=== PATIENT | female | born 1930 | race Caucasian/White ===

== ENCOUNTER 2016-11-09 09:05 | Inpatient (IN) | payer OTHER, BC ==
[~2016-11-09] VITALS: Ht 142.2 cm; Wt 69.0 kg
[~2016-11-09 09:05] MED LIST: ACETAZOLAMIDE500 MG PO; ALTOPREV20 MG PO; AMBIEN5 MG PO; ASPIR-LOW81 MG PO; ASPIR-TRIN325 M1 PO; ATIVAN0.5 MG PO; BRILINTA90 MG PO; CARDIZEM CD,CA180 MG PO; CARDIZEM CD360 MG PO; CARVEDILOL6.25 MG PO; CEPHALEXIN500 MG PO; COLACE100 MG PO; FAMOTIDINE20 MG PO; FUROSEMIDE40 MG PO; HEPARIN SO5000 UNITS SC; KEFLEX500 MG PO; KLOR-CON 1010 ME1 PO; LASIX40 MG PO; LOSARTAN POTAS100 MG PO; LOSARTAN POTASS50 MG PO; MICRO-K10 ME2 PO; MILK OF MAGNESI10 ML PO; MULTIPLE VITAM1 EACH PO; NEURONTIN100 MG PO; NITROSTAT0.4 MG SL; ONDANSETRON4 MG/2 ML IV; OS-CAL 500+D T1 EAC1 PO; OS-CAL 500+D31 EACH PO; POLYETHYLENE GL17 GM PO; POTASSIUM CHLO10 ME3 PO; PRILOSEC20 MG PO; SENNA-TIME S T1 EACH PO; SYNTHROID150 MCG PO; TYLENOL REGULA325 MG PO; VALISONE 0.1%15 GM TP
[2016-11-09 09:59] LABS: EOSINOPHIL (%) 0 % (0-5); HEMATOCRIT 39.9 % (36.0-46.0); IMMATURE GRANULOCYTE (%) 0.3 % (0.0-0.7); IMMATURE GRANULOCYTE COUNT 0.2 K/uL; LYMPHOCYTE COUNT 0.7 K/uL (1.0-2.8); MCH 30.1 PG (29.0-34.0); MCHC 31.6 G/DL (30.0-36.0); MCV 95.5 FL (83-99); MONOCYTE (%) 7.3 % (3-12); MONOCYTE COUNT 0.6 K/uL (0-0.8); NEUTROPHIL (%) 83.5 % (45-76); NEUTROPHIL COUNT 6.3 K/uL (1.8-6.4); PLATELET COUNT 110 K/uL (156-360); RBC DIS.WIDTH-CV 15.8 % (11.8-14.6); RBC DIS.WIDTH-SD 52.7 % (39-53); RED BLOOD COUNT 4.18 M/uL (3.80-5.20); WHITE BLOOD COUNT 7.5 K/uL (4.1-10.2)
[2016-11-09 10:08] LABS: CHLORIDE 101 mEq/L (99-109); POTASSIUM 4.5 mEq/L (3.7-5.4); SODIUM 140 mEq/L (136-147)
[2016-11-09 10:09] LABS: GLUCOSE 125 mg/dL (70-99)
[2016-11-09 10:09] LABS: INTER. NORMALIZED RATIO 1.1; PROTHROMBIN TIME 11.7 (9.2-11.2); PTT 29.6 (25-32)
[2016-11-09 10:11] LABS: ANION GAP 11 MEQ/L (2-14)
[2016-11-09 10:13] LABS: GFR ESTIMATE (CALCULATED) 27 mL/min/
[2016-11-09 10:14] LABS: UREA NITROGEN (BUN) 69 mg/dL (9-23)
[2016-11-09 10:22] LABS: TROP-I INTERPRETATION NEGATIVE; TROPONIN-I 0.03 ng/mL (0.0-0.30)
[2016-11-09 12:26] LABS: INFLUENZA A VIRAL ANTIGEN POSITIVE; INFLUENZA B VIRAL ANTIGEN NEGATIVE
[2016-11-09] MEDS ORDERED: LOSARTAN POTAS100 MG PO (14:42)
[2016-11-09] MEDS ORDERED: K-DUR10 MEQ PO (14:44)
[2016-11-09] MEDS ORDERED: LASIX80 MG PO (14:44)
[2016-11-09] MEDS ORDERED: ACETAZOLAMIDE500 MG PO (14:45)
[2016-11-09] MEDS ORDERED: TYLENOL EXTRA500 MG PO (14:47)
[2016-11-09] MEDS ORDERED: NITROSTAT0.4 MG SL (14:47)
[2016-11-09 20:00] VITALS: BP 104/57
[2016-11-10] VITALS: BP 115/58
[2016-11-10 04:00] VITALS: BP 116/62
[2016-11-10 04:23] LABS: CHLORIDE 101 mEq/L (99-109); POTASSIUM 4.8 mEq/L (3.7-5.4); SODIUM 142 mEq/L (136-147)
[2016-11-10 04:25] LABS: GLUCOSE 105 mg/dL (70-99)
[2016-11-10 04:27] LABS: ANION GAP 10 MEQ/L (2-14)
[2016-11-10 04:29] LABS: GFR ESTIMATE (CALCULATED) 28 mL/min/
[2016-11-10 04:30] LABS: UREA NITROGEN (BUN) 72 mg/dL (9-23)
[2016-11-10 07:25] VITALS: BP 114/55
[2016-11-10 11:39] VITALS: BP 114/58
[2016-11-10 15:27] VITALS: BP 102/56
[2016-11-10 20:00] VITALS: BP 104/55
[2016-11-11] VITALS (7 sets, daily range): BP systolic 85–112; BP diastolic 46–62
[2016-11-11 07:51] LABS: TROP-I INTERPRETATION NEGATIVE; TROPONIN-I 0.04 ng/mL (0.0-0.30)
[2016-11-12] VITALS (13 sets, daily range): BP systolic 74–114; BP diastolic 27–57
[2016-11-12 15:12] LABS: BASE EXCESS 4.7 mEq/L (-3 to +3); BICARBONATE 36.8 mEq/L (22-26); CARBOXY HGB 1.9 % (0-5); METHEMOGLOBIN 1.3 % (0-1.5); PCO2 101 mm Hg (35-45); PO2 123 mm Hg (80-100)
[2016-11-12 15:14] LABS: COMMENTS - BLOOD GASES C+; DEVICE NRBM; O2 FLOW 15 L/MIN; SITE RR; pH 7.17 (7.35-7.45)
[2016-11-12 15:39] LABS: TROP-I INTERPRETATION NEGATIVE; TROPONIN-I 0.03 ng/mL (0.0-0.30)
[2016-11-12 15:41] LABS: EOSINOPHIL (%) 0 % (0-5); HEMATOCRIT 41.9 % (36.0-46.0); IMMATURE GRANULOCYTE (%) 0.4 % (0.0-0.7); LYMPHOCYTE COUNT 0.8 K/uL (1.0-2.8); MCH 30.9 PG (29.0-34.0); MCHC 30.3 G/DL (30.0-36.0); MONOCYTE (%) 7.7 % (3-12); MONOCYTE COUNT 0.6 K/uL (0-0.8); NEUTROPHIL (%) 82.2 % (45-76); NEUTROPHIL COUNT 6.5 K/uL (1.8-6.4); RBC DIS.WIDTH-CV 16.1 % (11.8-14.6); RED BLOOD COUNT 4.11 M/uL (3.80-5.20); WHITE BLOOD COUNT 7.9 K/uL (4.1-10.2)
[2016-11-12 16:19] LABS: ANION GAP 6 MEQ/L (2-14); CHLORIDE 103 MEQ/L (99-109); POTASSIUM 4.9 MEQ/L (3.7-5.4); SAMPLE HEMOLYSIS CHECK 0; SAMPLE ICTERIC CHECK 0; SAMPLE LIPEMIA CHECK 0; SODIUM 141 MEQ/L (136-147)
[2016-11-12 16:24] LABS: GFR ESTIMATE (CALCULATED) 30 mL/min/; GLUCOSE 111 mg/dL (70-99); UREA NITROGEN (BUN) 84 mg/dL (9-23)
[2016-11-12 17:18] LABS: MEAN PLAT.VOLUME 11.5 uM^3 (9.5-12.4); PLAT.SUFFICIENCY DECREASED; PLATELET COUNT 89 K/uL (156-360); USER ID SS
[2016-11-12 17:25] LABS: MCV 101.9 FL (83-99)
[2016-11-12 17:27] LABS: METH RESISTANT S AUREUS PCR NEGATIVE (NEGATIVE)
[2016-11-12 17:36] LABS: PROBE CHECK PASS; SPECIMEN PROCESSING CONTROL PASS
[2016-11-13 09:20] LABS: INTERNAL CONTROL VALID? YES
== END 2016-11-12 23:00 | DRG 193 ==
LOC: EME 09:05 → EDOF 12:24 → 5SOUTH 12:24 → 4WEST 12:24 → 5SOUTH 19:53 → 4WEST 11-12 15:21
PROVIDERS: Emergency Medicine; Hospitalist; Internal Medicine Cardiovascular Disease; Internal Medicine Nephrology; Nurse Practitioner Adult Health
DX: J10.1 Influenza due to other identified influenza virus with other respiratory manifestations (principal); J06.9 Acute upper respiratory infection, unspecified; I13.0 Hypertensive heart and chronic kidney disease with heart failure and stage 1 through stage 4 chronic kidney disease, or unspecified chronic kidney disease; I50.23 Acute on chronic systolic (congestive) heart failure; N18.3 Chronic kidney disease, stage 3 (moderate); J96.01 Acute respiratory failure with hypoxia; J96.02 Acute respiratory failure with hypercapnia; E87.2 Acidosis; G93.49 Other encephalopathy; I95.9 Hypotension, unspecified; I25.10 Atherosclerotic heart disease of native coronary artery without angina pectoris; I42.0 Dilated cardiomyopathy; E78.5 Hyperlipidemia, unspecified; I35.0 Nonrheumatic aortic (valve) stenosis; E03.9 Hypothyroidism, unspecified; J45.909 Unspecified asthma, uncomplicated; F32.9 Major depressive disorder, single episode, unspecified; I27.2 Other secondary pulmonary hypertension; G89.29 Other chronic pain; Z85.3 Personal history of malignant neoplasm of breast; Z95.5 Presence of coronary angioplasty implant and graft; Z99.81 Dependence on supplemental oxygen; I25.2 Old myocardial infarction; Z66 Do not resuscitate; Z51.5 Encounter for palliative care
CPT/HCPCS: 36600; 71010; 80048; 82803; 82948; 83605; 83880; 84484; 85025; 85610; 85730; 87040; 87449; 87502; 87641; 93005; 94640; 94640 76; 94644; 94799; 99202; 99281; 99285; J1265; J1644; J1815; J1940; J2270; J2405; J2920; J2930; J3475; J7030; P9045